=== PATIENT | male | born 1985 | race Caucasian/White ===

== ENCOUNTER 2017-04-03 00:13 | Emergency (ER) | payer OTHER ==
--- NOTE | 2017-04-03 00:23 | EDPHY ---
H & P Source: Patient, Police HPI/ROS: HPI CHIEF COMPLAINT: Suicidal ideation, depression, off medications, alcoholism, M1 hold by [facility] Department. HISTORY OF PRESENT ILLNESS: This patient very pleasant 31-year-old male, otherwise healthy does have significant past medical history for depression and he is not on any his medications, history of alcoholism daily alcohol use. He binge drinks liquor. He states he had 1 L this evening of whiskey. He presents emergency room after calling the suicide crisis hotline. Thoughts of suicidal ideation without specific plan. Brought into the emergency room on M1 hold by police. Past Medical History: Depression, daily alcohol use Past Surgical History: Remote right knee surgery Social History: Daily alcohol use, binge drinks liquor Family History: Noncontributory ROS REVIEW OF SYSTEMS: A comprehensive 10 point review of systems is otherwise negative aside from elements mentioned in the history of present illness. Exam Constitutional intoxicated, smells of alcohol, pleasant, triage nursing summary reviewed, vital signs reviewed, awake/alert. Eyes normal conjunctivae and sclera, EOMI, PERRLA. HENT normal inspection, atraumatic, moist mucus membranes, no epistaxis, neck supple/ no meningismus, no raccoon eyes. Respiratory clear to auscultation bilaterally, normal breath sounds, no respiratory distress, no wheezing. Cardiovascular rate normal, regular rhythm, no murmur, no edema, distal pulses normal. Gastrointestinal soft, non-tender, no rebound, no guarding, normal bowel sounds, no distension, no pulsatile mass. Genitourinary no CVA tenderness. Musculoskeletal no midline vertebral tenderness, full range of motion, no calf swelling, no tenderness of extremities, no meningismus, good pulses, neurovascularly intact. Skin pink, warm, & dry, no rash, skin atraumatic. Neurologic awake, alert and oriented x 3, AAOx3, moves all 4 extremities equally, motor intact, sensory intact, CN II-XII intact, normal cerebellar, normal vision, normal speech. Psychiatric calm and cooperative. Heme/Lymph/Immune no lymphadenopathy. Differential Diagnosis: Includes but is not limited to in a particular order severe depression, alcohol abuse, alcoholism, mood disorder, bipolar disorder, suicidal ideation Medical Decision Making: Plan for this patient blood draw, patient on M1 hold, will need medical clearance including sobriety and then mental health evaluation. Re-evaluation: Serum alcohol 289. Marijuana positive. Patient will need to metabolize the alcohol. Mental health evaluation. Patient has been sleeping resting most of the evening. Patient signed over at 7:00 a.m. shift change to Dr. Goodman. Patient pending eval. (Reza Durán) - Medical/Surgical History PMH: Bipolar disorder (Damaris Goodman) Constitutional: Initial Vital Signs Temperature (C) 37 C 04/03/17 00:35 Heart Rate 120 H 04/03/17 00:35 Respiratory Rate 16 04/03/17 00:35 Blood Pressure 133/98 H 04/03/17 00:35 O2 Sat (%) 94 04/03/17 00:35 O2 Delivery Mode Room Air Allergies/Adverse Reactions: No Known Allergies Allergy (Unverified 04/03/17 00:35) Home Medications: Medication Instructions Recorded NK [No Known Home Meds] 04/03/17 Medical Decision Making ED Course/Re-evaluation: 7:00 a.m.-I assumed care of this patient at shift change. He has a history of alcoholism, is currently intoxicated and has suicidal ideation. On an M1 hold, mental health evaluation pending, awaiting sobriety. 11:00 a.m.-this patient has been seen by mental health. He is no longer suicidal. He has an appointment follow-up later this week. He has contracted for safety. I feel that he is safe and stable for discharge. (Damaris Goodman) - Data Points Laboratory Results: Laboratory Results 04/03/17 00:22 04/03/17 00:22 04/03/17 04/03/17 04/03/17 00:56 00:22 00:22 WBC 11.38 10^3/uL H 10^3/uL (3.80-9.50) RBC 5.80 10^6/uL 10^6/uL (4.40-6.38) Hgb 18.2 g/dL H g/dL (13.7-17.5) Hct 50.6 % % (40.0-51.0) MCV 87.2 fL fL (81.5-99.8) MCH 31.4 pg pg (27.9-34.1) MCHC 36.0 g/dL g/dL (32.4-36.7) RDW 13.0 % % (11.5-15.2) Plt Count 337 10^3/uL 10^3/uL (150-400) MPV 9.8 fL fL (8.7-11.7) Neut % (Auto) 59.6 % % (39.3-74.2) Lymph % (Auto) 31.7 % % (15.0-45.0) [place] % (Auto) 7.3 % % (4.5-13.0) Eos % (Auto) 0.6 % % (0.6-7.6) Baso % (Auto) 0.5 % % (0.3-1.7) Nucleat RBC Rel Count 0.0 % % (0.0-0.2) Absolute Neuts (auto) 6.78 10^3/uL H 10^3/uL (1.70-6.50) Absolute Lymphs (auto) 3.61 10^3/uL H 10^3/uL (1.00-3.00) Absolute Monos (auto) 0.83 10^3/uL H 10^3/uL (0.30-0.80) Absolute Eos (auto) 0.07 10^3/uL 10^3/uL (0.03-0.40) Absolute Basos (auto) 0.06 10^3/uL 10^3/uL (0.02-0.10) Absolute Nucleated RBC 0.00 10^3/uL 10^3/uL (0-0.01) Immature Gran % 0.3 % % (0.0-1.1) Immature Gran # 0.03 10^3/uL 10^3/uL (0.00-0.10) Sodium 145 mEq/L H mEq/L (134-144) Potassium 4.2 mEq/L mEq/L (3.5-5.2) Chloride 103 mEq/L mEq/L (97-110) Carbon Dioxide 17 mEq/l L mEq/l (22-31) Anion Gap 25 mEq/L H mEq/L (8-16) BUN 12 mg/dL mg/dL (7-23) Creatinine 0.8 mg/dL mg/dL (0.7-1.3) Estimated GFR > 60 Glucose 85 mg/dL mg/dL (70-100) Calcium 9.9 mg/dL mg/dL (8.5-10.4) Urine Opiates Screen NEGATIVE (NEGATIVE) Urine Barbiturates NEGATIVE (NEGATIVE) Ur Phencyclidine Scrn NEGATIVE (NEGATIVE) Ur Amphetamine Screen NEGATIVE (NEGATIVE) U Benzodiazepines Scrn NEGATIVE (NEGATIVE) Urine Cocaine Screen NEGATIVE (NEGATIVE) U Marijuana (THC) Screen NON-NEGATIVE H (NEGATIVE) Ethyl Alcohol 289 mg/dL H mg/dL (0-10) Departure - Departure Disposition: Home, Routine, Self-Care Clinical Impression: Alcohol use, Suicidal ideation, Bipolar 1 disorder Condition: Fair Instructions: Suicide Prevention for Adults (ED) Referrals: SHEA PALMA [Other] - As per Instructions
[2017-04-03 00:38] LABS: % IMMATURE GRANULYOCYTES 0.3 % (0.0-1.1); ABSOLUTE IMMATURE GRANULOCYTES 0.03 10^3/uL (0.00-0.10); ADD DIFF? NO; ADD MORPH? NO; ADD SCAN? NO; ATYPICAL LYMPHOCYTE FLAG 0 (0-99); FRAGMENT RBC FLAG 0 (0-99); HEMATOCRIT 50.6 % (40.0-51.0); HEMOGLOBIN 18.2 g/dL (13.7-17.5); LEFT SHIFT FLG 0 (0-99); LIPEMIA HEMOLYSIS FLAG 90 (0-99); MEAN CELL HEMOGLOBIN 31.4 pg (27.9-34.1); MEAN CELL VOLUME 87.2 fL (81.5-99.8); MEAN PLATELET VOLUME 9.8 fL (8.7-11.7); PLATELET CLUMPS FLAG 0 (0-99); PLATELET COUNT 337 10^3/uL (150-400)
[2017-04-03 00:39] VITALS: O2SAT 94
[2017-04-03 00:59] LABS: ANION GAP 25 mEq/L (8-16); CALCIUM 9.9 mg/dL (8.5-10.4); CARBON DIOXIDE 17 mEq/l (22-31); CHLORIDE 103 mEq/L (97-110); CREATININE 0.8 mg/dL (0.7-1.3); ETHANOL SERUM 289 mg/dL (0-10); GLOMERULAR FILTRATION RATE > 60; GLUCOSE 85 mg/dL (70-100); POTASSIUM 4.2 mEq/L (3.5-5.2); SODIUM 145 mEq/L (134-144)
[2017-04-03 11:24] VITALS: BP 130/89; PULSE 107; RESP 18; TEMP 97.5
== END 2017-04-03 11:26 | disposition home or self-care (01) ==
DX: R45.851 Suicidal ideations (principal); F31.9 Bipolar disorder, unspecified; F10.99 Alcohol use, unspecified with unspecified alcohol-induced disorder
CPT/HCPCS: 80305; G0480

== ENCOUNTER 2017-10-05 09:42 | Emergency (ER) | payer OTHER ==
[2017-10-05 09:55] VITALS: RESP 16; TEMP 98.1
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
[2017-10-05] MEDS ORDERED: AZITHROMYCIN 250 MG TAB PO ONE (10:18)
[2017-10-05] MEDS ORDERED: RALTEGRAVIR 400 MG TAB PO ONE (10:27)
[2017-10-05] MEDS ORDERED: EMTRICITABINE/TENOFOVIR 200MG/300MG TAB PO ONE (11:18)
[2017-10-05 11:29] VITALS: BP 136/90; PULSE 100; O2SAT 96
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
[2017-10-06] MEDS ORDERED: EMTRICITABINE/TENOFOVIR 200MG/300MG TAB PO ONE (10:27)
[2017-10-07 14:18] LABS: GC AMPLIFICATION GENPROBE NEGATIVE (NEGATIVE)
== END 2017-10-05 11:28 | disposition home or self-care (01) ==
LOC: EEVIPCON 09:42
DX: Z20.2 Contact with and (suspected) exposure to infections with a predominantly sexual mode of transmission (principal)
CPT/HCPCS: J0696